=== PATIENT | female | born 1995 | race Caucasian/White ===

== ENCOUNTER 2017-12-22 00:02 | Emergency (ER) | payer MEDICAID ==
--- NOTE | 2017-12-22 00:46 | ED PDOC ---
Arrival/HPI <Enrique Rodrigues - Last Filed: 12/22/17 01:55> - General Historian: Patient - History of Present Illness Time/Duration: Prior to Arrival Symptom Onset: Gradual Symptom Course: Resolved Context: School <Parish Acosta - Last Filed: 12/22/17 03:13> - General Chief Complaint: Weakness/Neurological Deficit Time Seen by Provider: 12/22/17 00:31 - History of Present Illness Narrative History of Present Illness (Text): 12/22/17 00:54 Patient is a 22 year old female with no significant past medical history who presents with no current symptoms however with complaints of past experiences of numbness and tingling associated with rapid shallow breaths which occurred first yesterday right before her exam. Patient states she feels as though she was possibly having a panic attack. 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 Patient states she would like a note for school for missing her exams both yesterday and today. Admits to anxiety, insomnia due to exams and studying. Patient denies suicidal ideations, fevers, chills, abdominal pain, nausea, vomiting, diarrhea. (Parish Acosta) Past Medical History - Provider Review Nursing Documentation Reviewed: Yes - Infectious Disease Hx of Infectious Diseases: None - Cardiac Hx Cardiac Disorders: Yes Other/Comment: "fainting" - Pulmonary Hx Respiratory Disorders: No - Neurological Hx Neurological Disorder: No - HEENT Hx HEENT Disorder: No - Renal Hx Renal Disorder: No - Endocrine/Metabolic Hx Endocrine Disorders: No - Hematological/Oncological Hx Blood Disorders: No - Integumentary Hx Dermatological Disorder: No - Musculoskeletal/Rheumatological Hx Musculoskeletal Disorders: No - Gastrointestinal Hx Gastrointestinal Disorders: No - Genitourinary/Gynecological Hx Genitourinary Disorders: No - Psychiatric Hx Psychophysiologic Disorder: No Hx Substance Use: No - Anesthesia Hx Anesthesia: No <Parish Acosta - Last Filed: 12/22/17 03:13> Family/Social History - Physician Review Nursing Documentation Reviewed: Yes Family/Social History: Other (non) Smoking Status: Never Smoked Hx Alcohol Use: No Hx Substance Use: No <Parish Acosta - Last Filed: 12/22/17 03:13> Allergies/Home Meds <Enrique Rodrigues - Last Filed: 12/22/17 01:55> <Parish Acosta - Last Filed: 12/22/17 03:13> Allergies/Adverse Reactions: Allergies No Known Allergies Allergy (Verified 12/22/17 00:23) Review of Systems - Physician Review All systems were reviewed & negative as marked: Yes - Review of Systems Constitutional: Normal, Fatigue. absent: Fevers Eyes: Normal. absent: Vision Changes ENT: Normal Respiratory: Normal. absent: SOB, Cough Cardiovascular: absent: Chest Pain, Palpitations Gastrointestinal: absent: Abdominal Pain, Diarrhea, Nausea, Vomiting Genitourinary Female: absent: Dysuria Neurological: absent: Headache, Dizziness Psychiatric: Anxiety <Parish Acosta - Last Filed: 12/22/17 03:13> Physical Exam Temperature: Afebrile Blood Pressure: Normal Pulse: Regular Respiratory Rate: Normal Appearance: Positive for: Well-Appearing, Non-Toxic, Comfortable Pain Distress: None Mental Status: Positive for: Alert and Oriented X 3 - Systems Exam Head: Present: Atraumatic, Normocephalic Pupils: Present: PERRL Extroacular Muscles: Present: EOMI Conjunctiva: Present: Normal Mouth: Present: Moist Mucous Membranes Respiratory/Chest: Present: Clear to Auscultation Cardiovascular: Present: Regular Rate and Rhythm, Murmurs, Normal S1, S2 Abdomen: Present: Normal Bowel Sounds. No: Tenderness, Distention Upper Extremity: Present: Normal Inspection. No: Edema Lower Extremity: Present: Normal Inspection. No: Edema Neurological: Present: GCS=15, CN II-XII Intact, Speech Normal Skin: Present: Warm, Normal Color Psychiatric: Present: Alert, Oriented x 3, Anxious <Parish Acosta - Last Filed: 12/22/17 03:13> Vital Signs Temp Pulse Resp BP Pulse Ox 12/22/17 02:41 98.7 F 68 18 102/59 L 100 12/22/17 00:20 98.1 F 74 16 91/53 L 100 Medical Decision Making <Enrique Rodrigues - Last Filed: 12/22/17 01:55> - Lab Interpretations Interpretation: All labs normal <Parish Acosta - Last Filed: 12/22/17 03:13> ED Course and Treatment: 12/22/17 01:07 Mayra Serna is a 22 year old female who presents to the emergency department with a complaint of past episodes of numbness,tingling, and rapid shallow breaths.. The patient notes that she has been stressed. In agreement with resident note which includes further HPI details. Patient was seen and evaluated with resident, came up with plan and treatment together. (Enrique Rodrigues) 12/22/17 00:51 POC test and Fingerstick. Will discharge patient with atarax. (Parish Acosta) - Lab Interpretations Lab Results: Lab Results 12/22/17 01:24: POC Glucose (mg/dL) 85 - PA / LOAN MANAGER / Resident Statement MD/DO has reviewed & agrees with the documentation as recorded. MD/DO has examined the patient and agrees with the treatment plan. - Scribe Statement The provider has reviewed the documentation as recorded by the Scribe <Enrique Rodrigues - Last Filed: 12/22/17 01:55> <Parish Acosta - Last Filed: 12/22/17 03:13> - Scribe Statement July Díaz Provider Scribe Attestation: All medical record entries made by the Scribe were at my direction and personally dictated by me. I have reviewed the chart and agree that the record accurately reflects my personal performance of the history, physical exam, medical decision making, and the department course for this patient. I have also personally directed, reviewed, and agree with the discharge instructions and disposition. (Enrique Rodrigues) Disposition/Present on Arrival <Enrique Rodrigues - Last Filed: 12/22/17 01:55> - Present on Arrival Any Indicators Present on Arrival: No History of DVT/PE: No History of Uncontrolled Diabetes: No Urinary Catheter: No History of Decub. Ulcer: No History Surgical Site Infection Following: None - Disposition Have Diagnosis and Disposition been Completed?: Yes Disposition Time: 02:28 Patient Plan: Discharge <Parish Acosta - Last Filed: 12/22/17 03:13> - Disposition Diagnosis: Anxiety Disposition: HOME/ ROUTINE Patient Problems: Current Active Problems Problem Status Onset Anxiety Acute Condition: FAIR Discharge Instructions (ExitCare): Anxiety, Adult (DC) Additional Instructions: Ms. Serna, thank you for letting us take care of you today. You were provided with a prescription for medication that will help with your nervousness and anxiety which is most likely stress related due to school. The emergency medical care you received today was directed at your acute symptoms. If you were prescribed any medication, please fill it and take as directed. It may take several days for your symptoms to resolve. Return to the Emergency Department if your symptoms worsen, do not improve, or if you have any other problems. Please contact your doctor or call one of the physicians/clinics you have been referred to that are listed on the Patient Visit Information form that is included in your discharge packet. Bring any paperwork you were given at discharge with you along with any medications you are taking to your follow up visit. Our treatment cannot replace ongoing medical care by a primary care provider (PCP) outside of the emergency department. Thank you for allowing the [facility] team to be part of your care today. If you had an X-Ray or CT scan: A Radiologist will review the ED reading if any change in treatment is needed we will contact you. If you had a blood, urine, or wound culture: It will take several days for the results, if any change in treatment is needed we will contact you. If you had an STI test: It will take 48 hours for the results. Please call after 1 week if you have not heard back. Prescriptions: hydrOXYzine HCl [Atarax] 50 mg PO QID #20 tab Referrals: Jen Bautista MD [Primary Care Provider] - Follow up with primary Forms: [employer] ([place]), SCHOOL NOTE
[2017-12-22 01:29] VITALS: O2SAT 100
[2017-12-22 02:45] VITALS: BP 102/59; PULSE 68; RESP 18; TEMP 98.7
== END 2017-12-22 02:41 | disposition home or self-care (01) ==
LOC: ED 00:02
DX: F41.9 Anxiety disorder, unspecified (principal)